=== PATIENT | male | born 1950 | race Caucasian/White ===

== ENCOUNTER 2023-09-07 09:35 | Outpatient (OUT) | payer MEDICARE, OTHER, SELFPAY ==
[2023-09-07 10:11] LABS: Basophils Percent Auto 0.5 % (0.2-2.0); Eosinophils Absolute Auto 0.4 10^3/uL (0.0-0.7); Eosinophils Percent Auto 6.5 % (0.9-7.0); Immature Granulocytes Abs Auto 0.01 10^3/uL (0.00-0.03); Immature Granulocytes Pct Auto 0.2 % (0.0-0.5); Lymphocytes Absolute Auto 1.9 10^3/uL (1.2-3.8); Lymphocytes Percent Auto 33.7 % (20.5-60.0); Mean Corpuscular HGB Conc 33.3 g/dL (29.9-35.2); Mean Corpuscular Hemoglobin 30.6 pg (25.9-34.0); Mean Corpuscular Volume 91.7 fL (80.0-94.0); Monocytes Absolute Auto 0.5 10^3/uL (0.3-0.8); Monocytes Percent Auto 9.4 % (1.7-12.0); Neutrophils Absolute Auto 2.9 10^3/uL (1.4-6.5); Neutrophils Percent Auto 49.7 % (43.0-75.0); Platelet Count 167 10^3/uL (150-450); Red Blood Count 4.58 10^6/uL (4.70-6.10); Red Cell Distribution Width 12.4 % (11.0-15.0); White Blood Count 5.7 10^3/uL (4.0-11.0)
[2023-09-07 12:35] LABS: Alanine Aminotransferase 28 U/L (16-63); Albumin Level 3.4 g/dL (3.4-5.0); Alkaline Phosphatase 79 U/L (46-116); Anion Gap 12.9; Aspartate Amino Transferase 21 U/L (15-37); BUN Creatinine Ratio 9.8; Bilirubin Total 1.7 mg/dL (0.2-1.0); Calcium 8.2 mg/dL (8.5-10.1); Carbon Dioxide 27.3 mmol/L (21.0-32.0); Chloride 108 mmol/L (98-107); Chol HDL Ratio 3.5; Cholesterol 104 mg/dL (<=200); Estimated GFR (African America 59 (>=60); Estimated GFR (Non-African Ame 48 (>=60); Globulin 3.3 g/dL; Glucose 107 mg/dL (74-106); HDL Cholesterol 30 mg/dL (40-60); Potassium 4.2 mmol/L (3.5-5.1); Sodium 144 mmol/L (136-145); Total Protein 6.7 g/dL (6.4-8.2); Triglycerides 162 mg/dL (<=150); VLDL CHOLESTEROL 32.4 mg/dL
== END 2023-09-07 09:36 | disposition home or self-care (01) ==
LOC: LAB 09:40
PROVIDERS: PCP Family Medicine; Visit Provider Internal Medicine Interventional Cardiology
DX: I25.10 Atherosclerotic heart disease of native coronary artery without angina pectoris (principal); E78.2 Mixed hyperlipidemia; I10 Essential (primary) hypertension
CPT/HCPCS: 36415; 80053; 80061; 85025

== ENCOUNTER 2024-09-20 13:30 | Outpatient (OUT) | payer MEDICARE, OTHER, SELFPAY ==
--- NOTE | 2024-09-20 14:00 | CA_ITS ---
Patient Name: LUIS ALBERTO COHEN MR#: [id number] : 1950 Exam Date: 09/20/2024 Ordering Doctor: DR SUSHMA ROWLEY M.D. ECHOCARDIOGRAM REPORT PROCEDURE: CA ECHO DOPPLER COMPLETE INDICATIONS: Coronary artery disease, OR, hypertension COMPARISON: None. DESCRIPTION: COMPLETE ECHOCARDIOGRAM Real-time transthoracic echocardiography with 2D, M-mode, spectral and color flow Doppler performed. QUALITY: Technical quality was good. LEFT VENTRICLE: Normal chamber size. Proximal septal hypertrophy (sigmoid septum). Normal systolic function. LV EF: Normal left ventricular ejection fraction, (55-60%). DIASTOLIC: Normal diastolic function. ATRIAL SEPTUM: Visually appears intact. LEFT ATRIUM: Normal chamber size. RIGHT ATRIUM: Normal chamber size. RIGHT VENTRICLE: Normal chamber size. Normal right ventricular systolic function. TRICUSPID VALVE: Normal mobility and thickness. No stenosis with trivial regurgitation. Unable to assess right-sided pressures due to lack of measurable tricuspid regurgitation. MITRAL VALVE: Normal mobility and thickness. No evidence of mitral valve stenosis. There is no mitral annular calcification. Mild mitral regurgitation. AORTIC VALVE: Normal trileaflet appearance. No visible sclerosis. Normal leaflet mobility. No evidence of aortic valve stenosis. No aortic regurgitation. AORTIC ROOT: Normal diameter and appearance. Ascending aorta is normal in size. PULMONIC VALVE: Normal thickness and mobility. No stenosis. Trivial regurgitation. PERICARDIUM: No evidence of pericardial effusion. IVC: Collapses with inspirations. PLEURA: CONCLUSION: 1. Follow-up ventricular size and systolic function. LVEF is estimated at 55 to 60%. 2. Normal right ventricular size and systolic function. 3. Normal diastolic function. 4. Mild mitral regurgitation. 5. Unable to assess right-sided pressures due to lack of measurable tricuspid regurgitation. Adult Echocardiography Procedure Report Left Ventricle LVEDD (3.7 - 5.6 cm): 4.59 cm LVESD (2.2 - 4.0 cm): 2.91 cm LVIVS thickness (0.6 - 1.2 cm): 1.08 cm LVPW thickness (0.5 - 1.0 cm): 1.01 cm e': 0.11 m/s E - e': 10.15 LVOT Max Gradient: 5.91 mm[Hg] LVOT Area (cm2): 1.22 m/s Peak Velocity (LVOT): 1.22 m/s Mean Velocity (LVOT): 0.80 m/s LVOT Diameter 2.10 cm Left Atrium LA Volume Index (2D A2C): 35.89 ml/m2 Left Atrium Systolic Dimension: 3.20 cm Mitral Valve MV E to A Ratio: 1.23 Mitral Valve A-Wave Peak Velocity: 0.91 m/s Mitral Valve E-Wave Peak Velocity: 1.12 m/s Right Ventricle Aorta AO Root Diam: 3.55 cm Ascending Ao Diam: 2.70 cm Aortic Valve AoV Area (Peak Neel): 2.70 cm2, 2.70 cm2 AoV Area (VTI): 2.77 cm2, 2.77 cm2 Peak Velocity(Antegrade Flow): 1.55 m/s Peak Gradient(Antegrade Flow): 9.64 mm[Hg] Mean Velocity(Antegrade Flow): 0.90 m/s Mean Gradient(Antegrade Flow): 4.00 mm[Hg] Velocity Time Integral: 33.56 cm Tricuspid Valve Pulmonic Valve Mean Gradient: 4.87 mm[Hg] Mean Velocity: 1.02 m/s Peak Velocity: 1.55 m/s, 1.51 m/s Peak Gradient: 9.18 mm[Hg], 9.58 mm[Hg] Right Atrium Right Atrium Systolic Pressure: 32.77 ml, 32.77 ml Dictated by: Sushma Rowley M.D. on 09/20/2024 at 15:16 Approved by: Sushma Rowley M.D. on 09/20/2024 at 15:19
== END 2024-09-20 13:31 | disposition home or self-care (01) ==
LOC: CARD 13:30
PROVIDERS: PCP Family Medicine; Visit Provider Internal Medicine Interventional Cardiology
DX: I25.10 Atherosclerotic heart disease of native coronary artery without angina pectoris (principal)
CPT/HCPCS: 93306

== ENCOUNTER 2025-01-23 09:45 | Outpatient (OUT) | payer MEDICARE, OTHER, SELFPAY ==
--- OUTSIDE RECORDS SUMMARY | 2025-01-23 10:04 | XMS_ITS | CCD ---
Author Organization [facility] Care Team Providers Care Qm Nurse Name Role Phone UNKNOWN, PROVIDER Admitting Unavailable UNKNOWN, PROVIDER Attending Unavailable DEXTER PERSAUD Referring Unavailable PERSAUD, DEXTER Primary Care Unavailable PERSAUD, DR DEXTER Pitts Admitting Unavailable PERSAUD, DR DEXTER Pitts Attending Unavailable PERSAUD, DR DEXTER Pitts Primary Care Unavailable PERSAUD, DR DEXTER Pitts Consulting Unavailable MOUKARBSUSHMA GARIBAY Attending Unavailable Allergies Allergy Classification Reported Allergen(s) Allergy Type Date of Onset Reaction(s) Facility (3 sources) black walnut pollen extract; Translations: [[id number] REDUCTASE INHIBITORS] Drug Allergy 07-09-2014 [facility] Repository Problems Problem Classification Problem Date Documented Date Episodic/Chronic Coronary atherosclerosis and other heart disease (3 sources) Atherosclerotic heart disease of [place] coronary artery without angina pectoris; Translations: [ASHD [place] CA W/O ANGINA PECTORIS] Onset: 09-09-2022 Chronic Disorders of lipid metabolism (2 sources) Mixed hyperlipidemia; Translations: [Mixed hyperlipidemia] Onset: 09-11-2024 Chronic Essential hypertension (2 sources) Essential (primary) hypertension; Translations: [Essential (primary) hypertension] Onset: 09-11-2024 Chronic Heart valve disorders (2 sources) Nonrheumatic mitral (valve) insufficiency; Translations: [Nonrheumatic mitral (valve) insufficiency] Onset: 09-11-2024 Chronic Hypertension with complications and secondary hypertension (4 sources) Hypertensive chronic kidney disease with stage 1 through stage 4 chronic kidney disease, or unspecified chronic kidney disease; Translations: [HTN CKD W/STAGE 1-4 CKD/UNS CKD] Onset: 09-07-2022 Chronic Other screening for suspected conditions (not mental disorders or infectious disease) (1 source) Encounter for screening for malignant neoplasm of prostate; Translations: [ENC SCREEN MALIG NEOPLASM PROSTATE] Onset: 09-09-2022 Episodic Unclassified (1 source) CHRN KIDNEY DISEASE STG 3 UNSP; Translations: [CHRN KIDNEY DISEASE STG 3 UNSP] Onset: 09-09-2022 Results Test Name Value Interpretation Reference Range Facility Office Visiton 09-11-2024 Follow-up visit [id number] Luis Alberto Chambers 1950 M Date Provider Department Center 09/11/2024 SUSHMA ZARCO [facility] Family History Problem Relation Age of Onset Colon cancer Mother Lung cancer Father Family Status - Relation Status Age at Mother Father Level of Service:62122 NE OFFICE/OUTPATIENT ESTABLISHED MOD MDM 30 MIN [facility] 36on 12-03-2023 36 I don't think the carvedilol is helping. He can switch back to the metoprolol succinate if he would like since this was just once daily, I know he said he has a hard time with twice daily medications. Recommend we add an additional medication, amlodipine 5mg daily. Follow-up on BP readings in 1 month. Thanks! [facility] 36on 11-12-2023 36 Still above goal of <130/90. Can we try to increase his carvedilol to 6.25mg twice daily? If his HR gets lower than his normal or he develops any sx's of dizziness/lightheaded ness, fatigue he should go back to the 3.125mg dose. Follow-up blood pressure and heart rates in 2 weeks. Thanks! [facility] 36on 10-19-2023 36 I spoke to patient. He has been taking metoprolol and carvedilol together. He has been more vigilant with his evening dose of carvedilol. He would like to see how he does with this and then discuss changing things. Please call him in 2-3 weeks. Thank you! [facility] CBC AUTO DIFFon 09-07-2022 BASO # 0.0 103/ul Normal 0.0-0.1 [facility] Comment on above: Performed By: #### C BC #### [facility] [address] [address] [address] Jamal Uriarte Basophils/100 WBC (Bld) 0.4 % Normal 0.2-2.0 [facility] Comment on above: Performed By: #### C BC #### [facility] [address] [place] [address] Dr. Jamal Uriarte EO # 0.3 103/ul Normal 0.0-0.7 [facility] Comment on above: Performed By: #### C BC #### [facility] [address] [place] [address] Dr. Jamal Uriarte Eosinophils/100 WBC (Bld) 6.2 % Normal 0.9-7.0 [facility] Comment on above: Performed By: #### C BC #### [facility] [address] [place] [address] Dr. Jamal Uriarte Erythrocyte distribution width (RBC) [Ratio] 12.8 % Normal 11.0-15.0 [facility] Comment on above: Performed By: #### C BC #### [facility] [address] [place] [address] Dr. Jamal Uriarte Hematocrit (Bld) [Volume fraction] 42.8 % Normal 42.0-54.0 [facility] Comment on above: Performed By: #### C BC #### [facility] [address] [place] [address] Dr. Jamal Uriarte Hemoglobin (Bld) [Mass/Vol] 14.6 g/dL Normal 14.0-18.0 [facility] Comment on above: Performed By: #### C BC #### [facility] [address] [place] [address] Dr. Jamal Uriarte IG # 0.02 10e3/ul Normal 0.00-0.03 [facility] Comment on above: Performed By: #### C BC #### [facility] [address] [place] [address] Dr. Jamal Uriarte IG % 0.4 % Normal 0.0-0.5 [facility] Comment on above: Performed By: #### C BC #### [facility] [address] [place] [address] Dr. Jamal Uriarte LYMPH # 1.8 103/ul Normal 1.2-3.8 [facility] Comment on above: Performed By: #### C BC #### [facility] [address] [place] [address] Dr. Jamal Uriarte Lymphocytes/100 WBC (Bld) 34.0 % Normal 20.5-60.0 [facility] Comment on above: Performed By: #### C BC #### [facility] [address] [place] [address] Dr. Jamal Uriarte MANUAL DIFF REQ NO Normal [facility] Comment on above: Performed By: #### C BC #### [facility] [address] [place] [address] Dr. Jamal Uriarte MCH (RBC) [Entitic mass] 29.7 pg Normal 25.9-34.0 [facility] Comment on above: Performed By: #### C BC #### [facility] [address] [place] [address] Dr. Jamal Uriarte MCHC (RBC) [Mass/Vol] 34.1 g/dL Normal 29.9-35.2 [facility] Comment on above: Performed By: #### C BC #### [facility] [address] [place] [address] Dr. Jamal Uriarte MCV (RBC) [Entitic vol] 87.0 fL Normal 80.0-94.0 [facility] Comment on above: Performed By: #### C BC #### [facility] [address] [place] [address] Dr. Jamal Uriarte MONO # 0.5 103/ul Normal 0.3-0.8 [facility] Comment on above: Performed By: #### C BC #### [facility] [address] [place] [address] Dr. Jamal Uriarte Monocytes/100 WBC (Bld) 9.2 % Normal 1.7-12.0 [facility] Comment on above: Performed By: #### C BC #### [facility] [address] [place] [address] Dr. Jamal Uriarte NEUT # 2.6 103/ul Normal 1.4-6.5 [facility] Comment on above: Performed By: #### C BC #### [facility] [address] [address] [address] Jamal Uriarte Neutrophils/100 WBC (Bld) 49.8 % Normal 43.0-75.0 [facility] Comment on above: Performed By: #### C BC #### [facility] [address] [address] [address] Jamal Uriarte Platelet mean volume (Bld) [Entitic vol] 9.4 fL Critically low 9.5-13.5 [facility] Comment on above: Performed By: #### C BC #### [facility] [address] [place] [address] Dr. Jamal Uriarte PLT 181 103/ul Normal 150-450 [facility] Comment on above: Performed By: #### C BC #### [facility] [address] [place] [address] Dr. Jamal Uirarte RBC 4.92 106/ul Normal 4.70-6.10 [facility] Comment on above: Performed By: #### C BC #### [facility] [address] [place] [address] Dr. Jamal Uriarte WBC 5.3 103/ul Normal 4.0-11.0 [facility] Comment on above: Performed By: #### C BC #### [facility] [address] [place] [address] Dr. Jamal Uriarte LIPID PROFILEon 09-07-2022 CHOL-HDL RATIO NORM SEE BELOW Normal [facility] Comment on above: Result Comment: 3.3 - 4.4 LOW RISK 4.4 - 7.1 AVERAGE RISK 7.1 - 11.0 MODERATE RISK >11.0 HIGH RISK Performed By: #### C MP, LIPID #### [facility] [address] [place] [address] Dr. Jamal Uriarte Cholesterol [Mass/Vol] 150 mg/dL Normal <=200 [facility] Comment on above: Performed By: #### C MP, LIPID #### [facility] [address] [place] [address] Dr. Jamal Uriarte Cholesterol in HDL [Mass/Vol] 36 mg/dL Critically low 40-60 [facility] Comment on above: Performed By: #### C MP, LIPID #### [facility] [address] [address] [address] Jamal Uriarte Cholesterol in LDL [Mass/Vol] 71.0 mg/dL Normal [facility] Comment on above: Performed By: #### C MP, LIPID #### [facility] [address] [address] [address] Jamal Uriarte Cholesterol.total/C holesterol in HDL [Mass ratio] 4.2 {ratio} Normal [facility] Comment on above: Performed By: #### C MP, LIPID #### [facility] [address] [address] [address] Jamal Uriarte HDL NORMAL > or = 60 mg/dl - LO W CARDIOVASCULAR RISK <40 mg/dl - HIGH CARDIOVASCULAR RISK Normal [facility] Comment on above: Performed By: #### C MP, LIPID #### [facility] [address] [address] [address] Jamal Uriarte LDL CALC NORMAL SEE BELOW Normal [facility] Comment on above: Result Comment: <100 mg/dl OPTIMAL 100 - 129 mg/dl NEAR OR ABOVE OPTIMAL 130 - 159 mg/dl BORDERLINE HIGH 160 - 189 mg/dl HIGH >190 mg/dl VERY HIGH Performed By: #### C MP, LIPID #### [facility] [address] [address] [address] Jamal Uriarte Triglyceride [Mass/Vol] 215 mg/dL Critically high <=150 [facility] Comment on above: Performed By: #### C MP, LIPID #### [facility] [address] [address] [address] Jamal Uriarte VLDL CALC 43.0 mg/dL Normal [facility] Comment on above: Performed By: #### C MP, LIPID #### [facility] [address] [address] [address] Jamal Uriarte PROF 14(COMP METB)on 022 Albumin [Mass/Vol] 3.7 g/dL Normal 3.4-5.0 [facility] Comment on above: Performed By: #### C MP, LIPID #### [facility] [address] [address] [address] Jamal Uriarte Albumin/Globulin [Mass ratio] 1.0 {ratio} Normal [facility] Comment on above: Performed By: #### C MP, LIPID #### [facility] [address] [address] [address] Jamal Uriarte ALP [Catalytic activity/Vol] 74 U/L Normal 46-116 [facility] Comment on above: Performed By: #### C MP, LIPID #### [facility] [address] [address] [address] Jamal Uriarte ALT [Catalytic activity/Vol] 40 U/L Normal 16-63 [facility] Comment on above: Performed By: #### C MP, LIPID #### [facility] [address] [place] [address] Dr. Jamal Uriarte Anion gap [Moles/Vol] 10.7 mmol/L Normal [facility] Comment on above: Performed By: #### C MP, LIPID #### [facility] [address] [address] [address] Jamal Uriarte AST [Catalytic activity/Vol] 28 U/L Normal 15-37 [facility] Comment on above: Performed By: #### C MP, LIPID #### [facility] [address] [address] [address] Jamal Uriarte Bilirubin [Mass/Vol] 1.6 mg/dL Critically high 0.2-1.0 [facility] Comment on above: Performed By: #### C MP, LIPID #### [facility] [address] [address] [address] Jamal Uriarte Calcium [Mass/Vol] 8.7 mg/dL Normal 8.5-10.1 [facility] Comment on above: Performed By: #### C MP, LIPID #### [facility] [address] [address] [address] Jamal Uriarte Chloride [Moles/Vol] 107 mmol/L Normal 98-107 [facility] Comment on above: Performed By: #### C MP, LIPID #### [facility] [address] [address] [address] Jamal Uriarte CO2 [Moles/Vol] 26.3 mmol/L Normal 21.0-32.0 [facility] Comment on above: Performed By: #### C MP, LIPID #### [facility] [address] [address] [address] Jamal Uriarte Creatinine [Mass/Vol] 1.42 mg/dL Critically high 0.70-1.30 [facility] Comment on above: Performed By: #### C MP, LIPID #### [facility] [address] [address] [address] Jamal Uriarte EGFR-AF SENEGALESE 59 mL/min/1.73m2 Critically low >=60 [facility] Comment on above: Performed By: #### C MP, LIPID #### [facility] [address] [address] [address] Jamal Uriarte EGFR-NON AF SENEGALESE 49 mL/min/1.73m2 Critically low >=60 [facility] Comment on above: Performed By: #### C MP, LIPID #### [facility] [address] [address] [address] Jamal Uriarte Globulin (S) [Mass/Vol] 3.7 g/dL Normal [facility] Comment on above: Performed By: #### C MP, LIPID #### [facility] [address] [address] [address] Jamal Uriarte Glucose [Mass/Vol] 114 mg/dL Critically high 74-106 [facility] Comment on above: Performed By: #### C MP, LIPID #### [facility] [address] [address] [address] Jamal Uriarte Potassium [Moles/Vol] 4.0 mmol/L Normal 3.5-5.1 [facility] Comment on above: Performed By: #### C MP, LIPID #### [facility] [address] [address] [address] Jamal Uriarte Protein [Mass/Vol] 7.4 g/dL Normal 6.4-8.2 [facility] Comment on above: Performed By: #### C MP, LIPID #### [facility] [address] [address] [address] Jamal Uriarte Sodium [Moles/Vol] 140 mmol/L Normal 136-145 [facility] Comment on above: Performed By: #### C MP, LIPID #### [facility] [address] [address] [address] Jamal Uriarte Urea nitrogen [Mass/Vol] 19.0 mg/dL Critically high 7.0-18.0 [facility] Comment on above: Performed By: #### C MP, LIPID #### [facility] [address] [address] [address] Jamal Uriarte Urea nitrogen/Creatinine [Mass ratio] 13.4 mg/mg Normal [facility] Comment on above: Performed By: #### C MP, LIPID #### [facility] [address] [address] [address] Jamal Uriarte Provider Letteron 07-14-2021 Provider Letter July 14, 2021 July 14, 2021 LUIS ALBERTO CHAMBERS [address] [place] [address] LUIS ALBERTO CHAMBERS 1950 Dear Luis Alberto , You missed your scheduled appointment on: June and the purpose of this letter is to inform you of our *No Show Policy*. Our appointment slots fill rapidly and when we have a no show appointment that time is lost. We could have used that time slot to care for a patient who needed to see one of our providers. Therefore, we ask that you call 24 hours in advance to cancel your appointment. This policy is in place so that we can meet the needs of all of our patients and we do appreciate your understanding. Sincerely, [facility] [address], [address] [place] [id number] Normal [facility] RAD - CT Reporton 12-25-2020 RAD - CT Report [id number]:127 Normal [facility] RAD - MISCon 12-25-2020 RAD - MISC [id number] .[id number]:127 Normal [facility] Formson 12-24-2020 Forms [id number]:127 Normal [facility] Screenson 12-24-2020 Screens [id number] .[id number]:127 Normal [facility] Ambulatory Clinical Summaryo n 12-23-2020 Ambulatory Clinical Summary {[id number]}CD:[id number] Normal [facility] Patient Educationon 12-24-19 Patient Education Urology Kidney Stones Kidney stones are rock-like masses that form inside of the kidneys. Kidneys are organs that make pee (urine). A kidney stone may move into other parts of the urinary tract, including: ? The tubes that connect the kidneys to the bladder (ureters). ? The bladder. ? The tube that carries urine out of the body (urethra). Kidney stones can cause very bad pain and can block the flow of pee. The stone usually leaves your body (passes) through your pee. You may need to have a doctor take out the stone. What are the causes? Kidney stones may be caused by: ? A condition in which certain glands make too much parathyroid hormone (primary hyperparathyroidism). ? A buildup of a type of crystals in the bladder made of a chemical called uric acid. The body makes uric acid when you eat certain foods. ? Narrowing (stricture) of one or both of the ureters. ? A kidney blockage that you were born with. ? Past surgery on the kidney or the ureters, such as gastric bypass surgery. What increases the risk? You are more likely to develop this condition if: ? You have had a kidney stone in the past. ? You have a family history of kidney stones. ? You do not drink enough water. ? You eat a diet that is high in protein, salt (sodium), or sugar. ? You are overweight or very overweight (obese). What are the signs or symptoms? Symptoms of a kidney stone may include: ? Pain in the side of the belly, right below the ribs (flank pain). Pain usually spreads (radiates) to the groin. ? Needing to pee often or right away (urgently). ? Pain when going pee (urinating). ? Blood in your pee (hematuria). ? Feeling like you may vomit (nauseous). ? Vomiting. ? Fever and chills. How is this treated? Treatment depends on the size, location, and makeup of the kidney stones. The stones will often pass out of the body through peeing. You may need to: ? Drink more fluid to help pass the stone. In some cases, you may be given fluids through an IV tube put into one of your veins at the hospital. ? Take medicine for pain. ? Make changes in your diet to help keep kidney stones from coming back. Sometimes, medical procedures are needed to remove a kidney stone. This may involve: ? A procedure to break up kidney stones using a beam of light (laser) or shock waves. ? Surgery to remove the kidney stones. Follow these instructions at home: Medicines ? Take kfoz-cyr-xkiajje and prescription medicines only as told by your doctor. ? Ask your doctor if the medicine prescribed to you requires you to avoid driving or using heavy machinery. Eating and drinking ? Drink enough fluid to keep your pee pale yellow. You may be told to drink at least 8?10 glasses of water each day. This will help you pass the stone. ? If told by your doctor, change your diet. This may include: ? Limiting how much salt you eat. ? Eating more fruits and vegetables. ? Limiting how much meat, poultry, fish, and eggs you eat. ? Follow instructions from your doctor about eating or drinking restrictions. General instructions ? Collect pee samples as told by your doctor. You may need to collect a pee sample: ? 24 hours after a stone comes out. ? 8?12 weeks after a stone comes out, and every 6?12 months after that. ? Strain your pee every time you pee (urinate), for as long as told. Use the strainer that your doctor recommends. ? Do not throw out the stone. Keep it so that it can be tested by your doctor. ? Keep all follow-up visits as told by your doctor. This is important. You may need follow-up tests. How is this prevented? To prevent another kidney stone: ? Drink enough fluid to keep your pee pale yellow. This is the best way to prevent kidney stones. ? Eat healthy foods. ? Avoid certain foods as told by your doctor. You may be told to eat less protein. ? Stay at a healthy weight. Where to find more information ? National Kidney Foundation (NKF): www.kidney.org ? [employer] (UCF): www.urologyhealth.org Contact a doctor if: ? You have pain that gets worse or does not get better with medicine. Get help right away if: ? You have a fever or chills. ? You get very bad pain. ? You get new pain in your belly (abdomen). ? You pass out (faint). ? You cannot pee. Summary ? Kidney stones are rock-like masses that form inside of the kidneys. ? Kidney stones can cause very bad pain and can block the flow of pee. ? The stones will often pass out of the body through peeing. ? Drink enough fluid to keep your pee pale yellow. This information is not intended to replace advice given to you by your health care provider. Make sure you discuss any questions you have with your health care provider. Document Released: 03/22/2009 Document Revised: 02/20/2020 Document Reviewed: 02/20/2020 [employer] Patient Education ? 2019 [employer] 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 Persaud due to Kidney stone found on CT done 11/19/20. Pt was in the ER 11/19/20 due to left flank pain that radiated around the front. Pt states that he passed a stone 3 days after the ER visit. KUB 12/19/20 is negative for stones. This is the pt's first issue with stones. Dysuria: no pain or burning Incomplete bladder emptying: emptying Hematuria: _denies any blood in urine Frequency: normal Urgency: none Nocturia: 1x Stream: average stream, no hesitation, no straining to empty. no intermittent Post void dripping: rare Wearing pads/ Depends: _ Urge incontinence: none Stress incontinence: none Incontinence without Sensory Awareness: none Abdominal pain: no pain at this time Flank pain: no pain Sexual complaints: none expressed History of Present Illness Reviewed KUB, CT, [facility] ER notes, and new pt. paper works. There have been no associated fever, chills, flank pain or blood in the urine. Pt. denies any pain/burning with urination at this time. Review of Systems PHQ Score Initial Depression Screen Score: 0 ROS - Provider Constitutional: denies weight loss, denies hot flashes. Eyes: denies eye problems. Gastrointestinal: denies nausea, denies vomiting. Cardiovascular: denies chest pain or angina. Integumentary: no dryness Musculoskeletal: denies musculoskeletal symptoms. ENMT: denies otolaryngeal symptoms. Respiratory: no shortness of breath. Heme/Lymph: denies easy bleeding tendency, denies easy bruising tendency. Psychiatric: no confusion, no anxiety. Genitourinary: denies dysuria, denies hematuria, denies discharge, denies urinary frequency, denies urinary hesitancy, denies nocturia, denies incontinence, denies genital sores, denies decreased libido, and denies erectile dysfunction. Physical Exam Vitals & Measurements HR: 65(Peripheral) RR: 18 BP: 157/94 HT: 168 cm HT: 168.0 cm WT: 100 kg WT: 100.0 kg BMI: 35.43 General Appearance: alert, no distress, well nourished, well developed male. Head: normocephalic . Eyes: normal orbit and globe. ENMT: normal examination of external ears. Chest: Lungs CTA, respirations non labored. Cardiovascular: regular rate and rhythm. Abdomen: soft, non distended, no tenderness, no mass or organomegaly, no hernia. Genitourinary: normal scrotum, normal testes, normal urethra, normal epididymis, normal vas deferens/spermatic cord. Flank Pain: none. Bladder: nonpalpable. Penis: normal shaft, normal glans. Prostate: normal prostate, estimated weight 30 gms, no hard nodule observed. Lymph Nodes: unremarkable palpation of the cervical area. Skin: warm, dry, no bruising. Psychiatric: cooperative, affect appropriate for age, normal judgement, euthymic mood. Assessment/Plan 1. Ureteral stone (N20.1: Calculus of ureter) Per CT 11/19/20, 4mm left ureteral stone. Current KUB done 12/19/2020 no longer identifies the ureterolith. Pt. never passed the stone but his pain stopped 3 days after the e.r.. From today's exam, pts. previous left flank pain is no longer present. Will continue to monitor. All questions/concerns were discussed. Pt. to call the office if heencounters any issues prior. Pt. acknowledges understanding. 2. Kidney stone (N20.0: Calculus of kidney) Per CT done 11/19/20, 3mm rt. renal stone. Current KUB is neg. for stones. 3. BPH with urinary obstruction (N40.1: Benign prostatic hyperplasia with lower urinary tract symptoms) Pt. is not on any BPH meds. at this time and is doing well overall w/ his urination w/ no bothersome symptoms. JOSÉ today - 30gms, no hard nodules. I have reviewed the previous health record information and history for this pt. from Dr. Campuzano. Follow-up With When Contact Information TATIANNA LEY, Francisco Cage [facility] [place] [address] [place] [address]- [phone] Additional Instructions: 6mos. kub Patient Education Kidney Stones, Qbli-[id number] I, Nerissa Merida , personally scribed for Dr. Campuzano on 12/23/2020 11:10:07. . Documentation recorded by the scribe, Nerissa Merida, accurately reflects the services(s) I performed and decisions made by me. Authenticated by Dr. Campuzano on 12/23/2020 11:12:44. Problem List/Past Medical History Ongoing CAD (coronary artery disease) Chronic gastroesophageal reflux disease CKD (chronic kidney disease), stage III Generalized anxiety disorder High cholesterol Hypertension Kidney stone VT (myocardial infarction) Historical No qualifying data Procedure/Surgical History Cardiac catheterization, History of tonsillectomy, History of vasectomy. Medications aspirin 325 mg Oral EC Tab, Oral, Daily atorvastatin 80 mg Tab, Oral, Daily metoprolol 25 mg ER Tab, Oral, Daily olmesartan 40 mg Tab, Oral, Daily Allergies statins (Unknown) Social History Tobacco Former smoker, quit more than 30 days ago Tobacco Use:., 12/23/2020 Fami (more content not included)... Normal [facility] Comment on above: Result Comment: Elec tronically Signed By: Francisco CAMPUZANO MD\.br\Date and Time Signed: 12/23/20 11:12 EST\.br\Electronically Co-Signed By: Nerissa Merida MA\.br\Date and Time Co-Signed: 12/23/20 11:10 EST RAD - MISCon 12-20-2020 RAD - MISC [id number] Normal [facility] Cardiovascular Lab Reporton 07-12-2020 Cardiovascular Lab Report [facility] Patient Name: Trish, [facility] Bernardo MR #: [id number] Department of Physician: Sushma Rowley M.D. Division of Service Date: 07/11/2020 Cardiology Birthdate: 1950 Adult Cardiovascular Room #: [place] [address] Cardiovascular Laboratory Report INDICATION: The patient is a 69-year-old man with prior history of coronary artery disease status post stenting of the LAD in the past. He was evaluated recently in Cardiology Clinic because of chest pain and an abnormal stress test and he was referred for cardiac catheterization. PROCEDURE: Bilateral selective coronary angiography from the left radial access. METHODS: Procedure was explained to the patient with risks and benefits. He signed informed consent. 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 Due to his chronic kidney disease, he was hydrated prior to the procedure. Modified Trell's test was favorable on the left. Access in the left radial artery was obtained using micropuncture technique. A 6-Stateless x 11 cm Hydrophilic sheath was advanced. Verapamil was given through the sheath and heparin was administered intravenously. Bilateral selective coronary angiography was then performed using a 6-Stateless JL3.5 for engagement of the left anterior descending artery, a 6-Stateless multipurpose catheter for engagement of the circumflex vessel and a 4-Stateless 3DRC diagnostic catheter for engagement of the right coronary artery. Catheters were removed. Procedure was concluded. A TR band was used for hemostasis in the left radial artery. He tolerated the procedure well. He will be observed for 4 hours and then discharged to home. TOTAL FLUORO TIME: 9.04 minutes. TOTAL AIR KERMA: 780 mGy. TOTAL CONTRAST VOLUME: 35 mL. HEMODYNAMICS: AO 139/78, mean 102. CORONARY ANGIOGRAPHY: 1. This is a left dominant circulation. 2. Left main: This is an existent. The LAD and circumflex vessels arise from separate ostia. 3. Left anterior descending: This is a large vessel. It arises from left coronary cusp. It has a previously placed stent in the mid segment. The stent is widely patent. The rest of the LAD has mild disease. 4. 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 It is a large and dominant vessel. It has minimal luminal irregularities. 5. Right coronary artery: This arises from the right coronary cusp. It is a small and nondominant vessel. It is free of disease. SUMMARY OF THE FINDINGS: 1. Patent previously placed mid LAD stent with mild disease in LAD. 2. 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 The circumflex vessel has minimal disease. Small nondominant right coronary artery is free of disease. RECOMMENDATIONS: Medical therapy and follow up in Cardiology Clinic. Electronically Signed by: Sushma Rowley M.D. 07/15/2020 10:37 P Sushma Rowley M.D. Date Dict: 07/11/2020/02:35 P/Sushma Rowley M.D. Date Trans: 07/12/2020 01:44 Gisselle/jodie [id number] cc: Dexter Persaud D.O. [id number] [facility] [id number] Normal [facility] Encounters Encounter Date Encounter Type Care Provider Facility Start: 09-11-2024 End: 09-11-2024 ambulatory SUSHMA ROWLEY [facility] Start: 09-07-2022 End: 09-08-[address] DEXTER PERSAUD Facility: Start: 07-11-2020 End: 07-12-2020 Patient encounter procedure PROVIDER UNKNOWN Facility:[facility] Procedures Date Procedure Procedure Detail Performing Clinician Start: 09-07-[address] DEXTER PERSAUD Comment on above: Performed By: #### P [facility] #### [facility] [address] [address] [address] Jamal Uriarte Payers Date Payer Category Payer Medicare [id number] 1960 Unknown [id number] 1950 Unknown [id number] 1950 Unknown [id number] Progress note 09-11-2024 Note Date & Type Note Facility 09-11-2024 Note [facility] Subjective Luis Alberto Chambers is a 74 y.o. year old male patient being seen for 1 year follow up CAD, hypertension, hyperlipidemia, and bradycardia. No labs/imaging since last year. He has started lifting weights again and is able to do so without symptoms. He believes he has an upcoming apt with his PCP, who will order routine labs per patient. Doing very well. Patient Active Problem List Diagnosis Bradycardia Closed fracture of distal phalanx of finger Coronary arteriosclerosis Hypertensive disorder Open fracture of bone Family History Problem Relation Name Age of Onset Colon cancer Mother Lung cancer Father Social History Tobacco Use Smoking status: Former Types: Cigarettes Smokeless tobacco: Never Substance Use Topics Alcohol use: Not Currently Drug use: Never HPI Mr Chambers is seen in follow up. He is a 74 yo man with history of coronary artery disease and history of VT s/p stenting of the LAD in March of 2015. He had a NSTEMI in March 21, 2015. He underwent drug eluting stent to the proximal LAD. 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 Cardiac cath in 2019 showed patent stent and no new lesions. He has hypertension and hyperlipidemia on therapy. He has been doing well. he denies chest pain, shortness of breath, palpitations, dizziness, syncope and leg edemia. he has good exercise tolerance. There is no claudication. Review of Systems Musculoskeletal: Positive for joint pain. All other systems reviewed and are negative. Objective Visit Vitals BP 142/80 (BP Location: Left arm, Patient Position: Sitting) Pulse 58 Ht 1.702 m (5' 7 ) Wt 85.7 kg (189 lb) SpO2 98% BMI 29.60 kg/m??? Smoking Status Former BSA 2.01 m??? Physical Exam Constitutional: Appearance: He is well-developed. He is not ill-appearing. HENT: Head: Normocephalic and atraumatic. Nose: Nose normal. Eyes: General: No scleral icterus. Pupils: Pupils are equal, round, and reactive to light. Neck: Thyroid: No thyromegaly. Vascular: No JVD. Cardiovascular: Rate and Rhythm: Normal rate and regular rhythm. Pulses: Radial pulses are 2+ on the right side and 2+ on the left side. Heart sounds: Normal heart sounds. No murmur heard. No friction rub. No gallop. Pulmonary: Effort: Pulmonary effort is normal. No respiratory distress. Breath sounds: Normal breath sounds. No wheezing or rales. Chest: Chest wall: No tenderness. Abdominal: General: Bowel sounds are normal. There is no distension. Palpations: Abdomen is soft. Tenderness: There is no abdominal tenderness. Musculoskeletal: General: No swelling. Cervical back: Neck supple. Skin: General: Skin is warm and dry. Neurological: General: No focal deficit present. Mental Status: He is alert and oriented to person, place, and time. Psychiatric: Mood and Affect: Mood normal. Behavior: Behavior is cooperative. Judgment: Judgment normal. Allergies Allergies Allergen Reactions Hfvwanu-Rmd-Hdc Reductase Inhibitors Other Medications Current Outpatient Medications: amLODIPine (Norvasc) 5 mg tablet, Take 1 tablet (5 mg) by mouth in the morning., Disp: 90 tablet, Rfl: 3 aspirin 81 mg chewable tablet, Chew 1 tablet every day by oral route., Disp: , Rfl: atorvastatin (Lipitor) 80 mg tablet, Take 1 tablet by mouth in the morning., Disp: , Rfl: metoprolol succinate XL (Toprol-XL) 25 mg 24 hr tablet, Take 1 tablet (25 mg) by mouth in the morning. Do not crush or chew. STOP COREG, Disp: 90 tablet, Rfl: 3 nitroglycerin (Nitrostat) 0.4 mg SL tablet, DISSOLVE ONE TABLET UNDER THE TONGUE EVERY 5 MINUTES NEEDED FOR CHEST PAIN. DO NOT EXCEED A TOTAL OF 3 DOSES IN 15 MINUTES, Disp: , Rfl: olmesartan (BENIcar) 40 mg tablet, Take 1 tablet by mouth in the morning., Disp: , Rfl: amLODIPine (Norvasc) 2.5 mg tablet, Take 1 tablet (2.5 mg) by mouth in the morning. Take in addition to the 5 mg tablet for a total of 7.5 mg daily., Disp: 90 tablet, Rfl: 3 Recent Labs 09/07/2023 CBC unremarkable Cr 1.43, BUN 14, eGFR 48, K 4.2, Na 144, AST 21, ALT 28 Chol 104, HDL 30, LDL 42, trig 162 02/18/2021 Cr 1.53, BUN 21, eGFR 45 Lipid panel 06/25/2020: Cholesterol 107, HDL 26, trig 96, LDL 61 Imaging and other tests CVL 07/15/20 CORONARY ANGIOGRAPHY: 1. This is a left dominant circulation. 2. Left main: This is an existent. The LAD and circumflex vessels arise from separate ostia. 3. Left anterior descending: This is a large vessel. It arises from left coronary cusp. It has a previously placed stent in the mid segment. The stent is widely patent. The rest of the LAD has mild disease. 4. 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 It is a large and dominant vessel. It has minimal luminal irregularities. 5. Right coronary artery: (more content not included)... [facility] Summary Purpose Family History No Family History Records FoundNo Family History Records FoundNo Family History Records FoundNo Family History Records Found Advance Directives No Advanced Directives Records FoundNo Advanced Directives Records FoundNo Advanced Directives Records FoundNo Advanced Directives Records Found Additional Source Comments (unrecognized sect ion and content) No Status Records FoundNo Status Records FoundNo Status Records FoundNo Status Records Found INFORMATION SOURCE (unrecogn ized section and content) DATE CREATED AUTHOR 07/16/2020 [facility] DATE CREATED AUTHOR AUTHOR'S ORGANIZ ATION 07/15/2021 [facility] DATE CREATED AUTHOR AUTHOR'S ORGANIZ ATION 09/10/2022 [facility] DATE CREATED AUTHOR AUTHOR'S ORGANIZ ATION 09/13/2024 [facility] FOR RECORDS PERTAINING TO PATIENTS WHO ARE OR HAVE BEEN ENROLLED IN A CHEMICAL DEPENDENCY/SUBSTANCEABUSE PROGRAM, SOME INFORMATION MAY BE OMITTED. This clinical summary was aggregated from multiple sources. Caution should be exercised in using it in the provision of clinical care. This summary normalizes information from multiple sources, and as a consequence, information in this document may materially change the coding, format and clinical context of patient data. In addition, data may be omitted in some cases. CLINICAL DECISIONS SHOULD BE BASED ON THE PRIMARY CLINICAL RECORDS. [facility] [employer] [facility]. provides no warranty or guarantee of the accuracy or completeness of information in this document.
[2025-01-23 10:16] LABS: Basophils Percent Auto 0.4 % (0.2-2.0); Eosinophils Absolute Auto 0.5 10^3/uL (0.0-0.7); Eosinophils Percent Auto 6.4 % (0.9-7.0); Hematocrit 43.6 % (42.0-54.0); Hemoglobin 14.9 g/dL (14.0-18.0); Immature Granulocytes Abs Auto 0.01 10^3/uL (0.00-0.03); Immature Granulocytes Pct Auto 0.1 % (0.0-0.5); Lymphocytes Absolute Auto 2.1 10^3/uL (1.2-3.8); Lymphocytes Percent Auto 29.4 % (20.5-60.0); Mean Corpuscular HGB Conc 34.2 g/dL (29.9-35.2); Mean Corpuscular Hemoglobin 29.9 pg (25.9-34.0); Mean Corpuscular Volume 87.4 fL (80.0-94.0); Mean Platelet Volume 9.4 fL (9.5-13.5); Monocytes Absolute Auto 0.6 10^3/uL (0.3-0.8); Monocytes Percent Auto 8.6 % (1.7-12.0); Neutrophils Percent Auto 55.1 % (43.0-75.0); Platelet Count 188 10^3/uL (150-450); Red Blood Count 4.99 10^6/uL (4.70-6.10); Red Cell Distribution Width 12.7 % (11.0-15.0); White Blood Count 7.2 10^3/uL (4.0-11.0)
[2025-01-23 11:28] LABS: Alanine Aminotransferase 30 U/L (16-63); Albumin Globulin Ratio 1.1; Albumin Level 3.8 g/dL (3.4-5.0); Alkaline Phosphatase 85 U/L (46-116); Anion Gap 12.4; Aspartate Amino Transferase 24 U/L (15-37); BUN Creatinine Ratio 10.8; Bilirubin Total 2.4 mg/dL (0.2-1.0); Calcium 8.7 mg/dL (8.5-10.1); Carbon Dioxide 26.7 mmol/L (21.0-32.0); Chloride 107 mmol/L (98-107); Chol HDL Ratio 3.3; Cholesterol 120 mg/dL (<=200); Estimated GFR (African America 52 (>=60 mL/min/1.73m^2); Estimated GFR (Non-African Ame 43 (>=60 mL/min/1.73m^2); Globulin 3.5 g/dL; Glucose 100 mg/dL (74-106); HDL Cholesterol 36 mg/dL (40-60); Potassium 4.1 mmol/L (3.5-5.1); Sodium 142 mmol/L (136-145); Total Protein 7.3 g/dL (6.4-8.2); Triglycerides 160 mg/dL (<=150)
== END 2025-01-23 09:46 | disposition home or self-care (01) ==
LOC: LAB 09:52
PROVIDERS: PCP Family Medicine; Visit Provider Internal Medicine Interventional Cardiology
DX: I25.10 Atherosclerotic heart disease of native coronary artery without angina pectoris (principal); I10 Essential (primary) hypertension; E78.2 Mixed hyperlipidemia
CPT/HCPCS: 36415; 80053; 80061; 85025

== ENCOUNTER 2025-03-05 10:42 | Outpatient (OUT) | payer MEDICARE, OTHER, SELFPAY ==
--- OUTSIDE RECORDS SUMMARY | 2025-03-05 11:13 | XMS_ITS | CCD ---
Author Organization [facility] Care Team Providers Care Technical Intern Name Role Phone UNKNOWN, PROVIDER Admitting Unavailable UNKNOWN, PROVIDER Attending Unavailable PERSAUDDEXTER Referring Unavailable PERSAUD, DEXTER Primary Care Unavailable PERSAUD, DR DEXTER Pitts Admitting Unavailable PERSAUD, DR DEXTER Pitts Attending Unavailable PERSAUD, DR DEXTER Pitts Primary Care Unavailable PERSAUD, DR DEXTER Pitts Consulting Unavailable MOUKARBEL, SUSHMA Attending Unavailable MOUKARBEL, SUSHMA Attending Unavailable Allergies Allergy Classification Reported Allergen(s) Allergy Type Date of Onset Reaction(s) Facility (3 sources) black walnut pollen extract; Translations: [[id number] REDUCTASE INHIBITORS] Drug Allergy 07-09-2014 [facility] Repository Problems Problem Classification Problem Date Documented Date Episodic/Chronic Coronary atherosclerosis and other heart disease (3 sources) 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; Translations: [ASHD [place] W/O ANGINA PECTORIS] Onset: 09-09-2022 Chronic Disorders of lipid metabolism (2 sources) Mixed hyperlipidemia; Translations: [Mixed hyperlipidemia] Onset: 01-22-2025 Chronic Essential hypertension (2 sources) Essential (primary) hypertension; Translations: [Essential (primary) hypertension] Onset: 01-22-2025 Chronic Heart valve disorders (2 sources) Nonrheumatic mitral (valve) insufficiency; Translations: [Nonrheumatic mitral (valve) insufficiency] Onset: 01-22-2025 Chronic Hypertension with complications and secondary hypertension [...] Test Name Value Interpretation Reference Range Facility 36on 02-21-2025 36 Regarding lab result s from 01/23/2025: MD Ruthie Esparza MA His blood testing showed everything is good and stable, stable renal function. Follow up in 1 year. Patient informed. Normal [facility] Office Visiton 01-22-2025 Follow-up visit [id number] Alberto Florentino 1950 M Date Provider Department Center 01/22/2025 SUSHMA ZARCO Family History Problem Relation Age of Onset Colon cancer Mother Lung cancer Father Family Status - Relation Status Age at Mother Father Sister Alive Brother Alive Level of Service:39863 MA OFFICE/OUTPATIENT ESTABLISHED MOD MDM 30 MIN [facility] Office Visiton 09-11-2024 Follow-up visit [id number] Luis Alberto Chambers 1950 M Date Provider Department Center 09/11/2024 SUSHMA ZARCO Family History Problem Relation Age of Onset Colon cancer Mother Lung cancer Father Family Status - Relation Status Age at Mother Father Level of Service:86569 MA OFFICE/OUTPATIENT ESTABLISHED MOD MDM 30 MIN [facility] CBC AUTO DIFFon 09-07-2022 BASO # 0.0 103/ul Normal 0.0-0.1 [facility] Comment on above: Performed By: #### C BC #### [facility] [address] [address] [address] Jamal Uriarte Basophils/100 WBC (Bld) 0.4 % Normal 0.2-2.0 [facility] Comment on above: Performed By: #### C BC #### [facility] [address] [place] [address] Dr. Jamal Uriarte EO # 0.3 103/ul Normal 0.0-0.7 [facility] Comment on above: Performed By: #### C BC #### [facility] [address] [place] [address] Dr. Jamal Uriarte Eosinophils/100 WBC (Bld) 6.2 % Normal 0.9-7.0 [facility] Comment on above: Performed By: #### C BC #### [facility] [address] [place] [address] Dr. Jamal Uriarte Erythrocyte distribution width (RBC) [Ratio] 12.8 % Normal 11.0-15.0 [facility] Comment on above: Performed By: #### C BC #### [facility] [address] [place] [address] Dr. Jamal Uriarte Hematocrit (Bld) [Volume fraction] 42.8 % Normal 42.0-54.0 [facility] Comment on above: Performed By: #### C BC #### [facility] [address] [place] [address] Dr. Jamal Uriarte Hemoglobin (Bld) [Mass/Vol] 14.6 g/dL Normal 14.0-18.0 [facility] Comment on above: Performed By: #### C BC #### [facility] [address] [place] [address] Dr. Jamal Uriarte IG # 0.02 10e3/ul Normal 0.00-0.03 [facility] Comment on above: Performed By: #### C BC #### [facility] [address] [place] [address] Dr. Jamal Uriarte IG % 0.4 % Normal 0.0-0.5 [facility] Comment on above: Performed By: #### C BC #### [facility] [address] [place] [address] Dr. Jamal Uriarte LYMPH # 1.8 103/ul Normal 1.2-3.8 [facility] Comment on above: Performed By: #### C BC #### [facility] [address] [place] [address] Dr. Jamal Uriarte Lymphocytes/100 WBC (Bld) 34.0 % Normal 20.5-60.0 [facility] Comment on above: Performed By: #### C BC #### [facility] [address] [place] [address] Dr. Jamal Uriarte MANUAL DIFF REQ NO Normal [facility] Comment on above: Performed By: #### C BC #### [facility] [address] [place] [address] Dr. Jamal Uriarte MCH (RBC) [Entitic mass] 29.7 pg Normal 25.9-34.0 [facility] Comment on above: Performed By: #### C BC #### [facility] [address] [place] [address] Dr. Jamal Uriarte MCHC (RBC) [Mass/Vol] 34.1 g/dL Normal 29.9-35.2 [facility] Comment on above: Performed By: #### C BC #### [facility] [address] [place] [address] Dr. Jamal Uriarte MCV (RBC) [Entitic vol] 87.0 fL Normal 80.0-94.0 [facility] Comment on above: Performed By: #### C BC #### [facility] [address] [place] [address] Dr. Jamal Uriarte MONO # 0.5 103/ul Normal 0.3-0.8 [facility] Comment on above: Performed By: #### C BC #### [facility] [address] [place] [address] Dr. Jamal Uriarte Monocytes/100 WBC (Bld) 9.2 % Normal 1.7-12.0 [facility] Comment on above: Performed By: #### C BC #### [facility] [address] [place] [address] Dr. Jamal Uriarte NEUT # 2.6 103/ul Normal 1.4-6.5 [facility] Comment on above: Performed By: #### C BC #### [facility] [address] [place] [address] Dr. Jamal Uriarte Neutrophils/100 WBC (Bld) 49.8 % Normal 43.0-75.0 [facility] Comment on above: Performed By: #### C BC #### [facility] [address] [place] [address] Dr. Jamal Uriarte Platelet mean volume (Bld) [Entitic vol] 9.4 fL Critically low 9.5-13.5 [facility] Comment on above: Performed By: #### C BC #### [facility] [address] [place] [address] Dr. Jamal Uriarte PLT 181 103/ul Normal 150-450 [facility] Comment on above: Performed By: #### C BC #### [facility] [address] [address] [address] Jamal Uriarte RBC 4.92 106/ul Normal 4.70-6.10 [facility] Comment on above: Performed By: #### C BC #### [facility] [address] [place] [address] Dr. Jamal Uriarte WBC 5.3 103/ul Normal 4.0-11.0 [facility] Comment on above: Performed By: #### C BC #### [facility] [address] [place] [address] Dr. Jamal Uriarte LIPID PROFILEon 09-07-2022 CHOL-HDL RATIO NORM SEE BELOW Normal [facility] Comment on above: Result Comment: 3.3 - 4.4 LOW RISK 4.4 - 7.1 AVERAGE RISK 7.1 - 11.0 MODERATE RISK >11.0 HIGH RISK Performed By: #### C MP, LIPID #### [facility] [address] [place] [address] Dr. Jamal Uriarte Cholesterol [Mass/Vol] 150 mg/dL Normal <=200 [facility] Comment on above: Performed By: #### C MP, LIPID #### [facility] [address] [place] [address] Dr. Jamal Uriarte Cholesterol in HDL [Mass/Vol] 36 mg/dL Critically low 40-60 [facility] Comment on above: Performed By: #### C MP, LIPID #### [facility] [address] [place] [address] Dr. Jamal Uriarte Cholesterol in LDL [Mass/Vol] 71.0 mg/dL Normal [facility] Comment on above: Performed By: #### C MP, LIPID #### [facility] [address] [address] [address] Jamal Uriarte Cholesterol.total/C holesterol in HDL [Mass ratio] 4.2 {ratio} Normal [facility] Comment on above: Performed By: #### C MP, LIPID #### [facility] [address] [address] [address] Jamal Uriarte HDL NORMAL > or = 60 mg/dl - LO W CARDIOVASCULAR RISK <40 mg/dl - HIGH CARDIOVASCULAR RISK Normal [facility] Comment on above: Performed By: #### C MP, LIPID #### [facility] [address] [address] [address] Jamal Uriarte LDL CALC NORMAL SEE BELOW Normal [facility] Comment on above: Result Comment: <100 mg/dl OPTIMAL 100 - 129 mg/dl NEAR OR ABOVE OPTIMAL 130 - 159 mg/dl BORDERLINE HIGH 160 - 189 mg/dl HIGH >190 mg/dl VERY HIGH Performed By: #### C MP, LIPID #### [facility] [address] [address] [address] Jamal Uriarte Triglyceride [Mass/Vol] 215 mg/dL Critically high <=150 [facility] Comment on above: Performed By: #### C MP, LIPID #### [facility] [address] [address] [address] Jamal Uriarte VLDL CALC 43.0 mg/dL Normal [facility] Comment on above: Performed By: #### C MP, LIPID #### [facility] [address] [address] [address] Jamal Uriarte PROF 14(COMP METB)on 022 Albumin [Mass/Vol] 3.7 g/dL Normal 3.4-5.[address] [facility] Comment on above: Performed By: #### C MP, LIPID #### [facility] [address] [place] [address] Dr. Jamal Uriarte Albumin/Globulin [Mass ratio] 1.0 {ratio} Normal [facility] Comment on above: Performed By: #### C MP, LIPID #### [facility] [address] [address] [address] Jamal Uriarte ALP [Catalytic activity/Vol] 74 U/L Normal 46-116 [facility] Comment on above: Performed By: #### C MP, LIPID #### [facility] [address] [place] [address] Dr. Jamal Uriarte ALT [Catalytic activity/Vol] 40 U/L Normal 16-63 [facility] Comment on above: Performed By: #### C MP, LIPID #### [facility] [address] [place] [address] Dr. Jamal Uriarte Anion gap [Moles/Vol] 10.7 mmol/L Normal [facility] Comment on above: Performed By: #### C MP, LIPID #### [facility] [address] [place] [address] Dr. Jamal Uriarte AST [Catalytic activity/Vol] 28 U/L Normal 15-37 [facility] Comment on above: Performed By: #### C MP, LIPID #### [facility] [address] [place] [address] Dr. Jamal Uriarte Bilirubin [Mass/Vol] 1.6 mg/dL Critically high 0.2-1.0 [facility] Comment on above: Performed By: #### C MP, LIPID #### [facility] [address] [place] [address] Dr. Jamal Uriarte Calcium [Mass/Vol] 8.7 mg/dL Normal 8.5-10.[address] [facility] Comment on above: Performed By: #### C MP, LIPID #### [facility] [address] [place] [address] Dr. Jamal Uriarte Chloride [Moles/Vol] 107 mmol/L Normal 98-107 [facility] Comment on above: Performed By: #### C MP, LIPID #### [facility] [address] [place] [address] Dr. Jamal Uriarte CO2 [Moles/Vol] 26.3 mmol/L Normal 21.0-32.0 [facility] Comment on above: Performed By: #### C MP, LIPID #### [facility] [address] [place] [address] Dr. Jamal Uriarte Creatinine [Mass/Vol] 1.42 mg/dL Critically high 0.70-1.30 [facility] Comment on above: Performed By: #### C MP, LIPID #### [facility] [address] [address] [address] Jamal Uriarte EGFR-AF IVORIAN 59 mL/min/1.73m2 Critically low >=60 [facility] Comment on above: Performed By: #### C MP, LIPID #### [facility] [address] [address] [address] Jamal Uriarte EGFR-NON AF IVORIAN 49 mL/min/1.73m2 Critically low >=60 [facility] Comment on above: Performed By: #### C MP, LIPID #### [facility] [address] [place] [address] Dr. Jamal Uriarte Globulin (S) [Mass/Vol] 3.7 g/dL Normal [facility] Comment on above: Performed By: #### C MP, LIPID #### [facility] [address] [place] [address] Dr. Jamal Uriarte Glucose [Mass/Vol] 114 mg/dL Critically high 74-106 [facility] Comment on above: Performed By: #### C MP, LIPID #### [facility] [address] [place] [address] Dr. Jamal Uriarte Potassium [Moles/Vol] 4.0 mmol/L Normal 3.5-5.1 [facility] Comment on above: Performed By: #### C MP, LIPID #### [facility] [address] [place] [address] Dr. Jamal Uriarte Protein [Mass/Vol] 7.4 g/dL Normal 6.4-8.2 [facility] Comment on above: Performed By: #### C MP, LIPID #### [facility] [address] [place] [address] Dr. Jamal Uriarte Sodium [Moles/Vol] 140 mmol/L Normal 136-[address] [facility] Comment on above: Performed By: #### C MP, LIPID #### [facility] [address] [place] [address] Dr. Jamal Uriarte Urea nitrogen [Mass/Vol] 19.0 mg/dL Critically high 7.0-18.0 [facility] Comment on above: Performed By: #### C MP, LIPID #### [facility] [address] [address] [address] Jamal Uriarte Urea nitrogen/Creatinine [Mass ratio] 13.4 mg/mg Normal [facility] Comment on above: Performed By: #### C MP, LIPID #### [facility] [address] [address] [address] Jamal Uriarte Provider Letteron 07-14-2021 Provider Letter July 14, 2021 July 14, 2021 [facility] ALBERTO [facility]AMB[facility] [address] [place] [address] LUIS ALBERTO CHAMBERS 1950 Dear Luis Alberto [...] appreciate your understanding. Sincerely, [facility] [address], [place] [address] Normal [facility] RAD - CT Reporton 12-25-2020 RAD - CT Report [id number] .[id number]:127 Normal [facility] RAD - MISCon 12-25-2020 RAD - MISC [id number] .00CD:127 Normal [facility] Formson 12-24-2020 Forms [id number] .[id number]:127 Normal [facility] Screenson 12-24-2020 Screens [id number] .[id number]:127 Normal [facility] Ambulatory Clinical Summaryo n 12-23-2020 Ambulatory Clinical Summary {[id number]}CD:[id number] Normal [facility] Patient Educationon 12-24-19 Patient Education Urology Kidney [...] these instructions at home: Medicines ? Take sakt-wlc-eosjwtz and prescription medicines only as told by [...] 03/22/2009 Document Revised: 02/20/2020 Document Reviewed: 02/20/2020 Fjuul Patient Education ? 2019 [employer]. Normal [facility] Urology Office/Clinic Noteon 12-23-2020 Urology Office/Clinic Note Chief Complaint [employer] kideny stones HPI Staff [employer] referred by Dr. Persaud due to Kidney [...] Dr. Campuzano. Follow-up With When Contact Information Francisco CAMPUZANO MD [address] [place] [address] [phone] Additional Instructions: 6mos. kub Patient Education Kidney Stones, Xsnp-uh-Yehk I, Nerissa Merida , personally scribed for [...] anxiety disorder High cholesterol Hypertension Kidney stone MD (myocardial infarction) Historical No qualifying data Procedure/Surgical [...] 12/23/2020 Fami (more content not included)... Normal [facility] Comment on above: Result Comment: Elec tronically Signed By: Francisco CAMPUZANO MD\.br\Date and Time Signed: 12/23/20 11:12 EST\.br\Electronically Co-Signed By: Nerissa Merida MA\.br\Date and Time Co-Signed: 12/23/20 11:10 EST RAD - MISCon 12-20-2020 RAD - MISC [id number] .00CD:127 Normal [facility] Cardiovascular Lab Reporton 07-12-2020 Cardiovascular Lab Report [facility] Patient Name: Luis Alberto Chambers [facility] Bernardo MR #: [id number] Department of Physician: Sushma Rowley M.D. Division of Service Date: 07/11/2020 Cardiology Birthdate: 1950 Adult Cardiovascular Room #: [facility] [address] [place] [id number] Cardiovascular Laboratory Report INDICATION: The patient is [...] signed informed consent. He was brought to manager cardiac cath in a fasting state. Due to his chronic kidney disease, he was hydrated prior to the procedure. Modified Trell's test was favorable on the left. Access in the left radial artery was obtained using micropuncture technique. A 6-Mexican x 11 cm Hydrophilic sheath was advanced. Verapamil was given through the sheath and heparin was administered intravenously. Bilateral selective coronary angiography was then performed using a 6-Mexican JL3.5 for engagement of the left anterior descending artery, a 6-Mexican multipurpose catheter for engagement of the circumflex vessel and a 4-Mexican 3DRC diagnostic catheter for engagement of the [...] P/Sushma Rowley M.D. Date Trans: 07/12/2020 01:44 A/jodie DN_[id number] cc: Dexter Persaud D.O. [address] [facility] [address] [facility] Encounters Encounter Date Encounter Type Care Provider Facility Start: 01-22-2025 End: 01-22-2025 ambulatory [facility] Start: 09-11-2024 End: 09-11-2024 ambulatory [facility] Start: 09-07-2022 End: 09-08-[address] DEXTER PERSAUD Facility: Start: 07-11-2020 End: 07-12-2020 Patient encounter procedure PROVIDER UNKNOWN Facility:[facility] Procedures Date Procedure Procedure Detail Performing Clinician Start: 09-07-[address] DEXTER PERSAUD Comment on above: Performed By: #### P [facility] #### [facility] [address] [place] [address] Dr. Jamal Uriarte Payers Date Payer Category Payer Medicare [id number] 1960 Unknown [id number] 1950 Unknown [id number] 1950 Unknown [id number] Progress note 01-22-2025 Note Date & Type Note Facility 01-22-2025 Note [place] [facility] Subjective Luis Alberto Chambers is a 74 y.o. year old male patient being seen for 6 month follow up. Patient states he is feel pretty good, he states has had cold off and on all winter. Patient denies chest, SOB, abnormal bleeding, or palpitations. Patient Active Problem List Diagnosis Bradycardia Closed [...] of coronary artery disease and history of MD s/p stenting of the LAD in March [...] and are negative. Objective Visit Vitals BP 121/70 (BP Location: Left arm, Patient Position: Sitting) Pulse 51 Ht 1.702 m (5' 7 ) Wt 83.9 kg (185 lb) SpO2 96% BMI 28.98 kg/m??? Smoking Status Former BSA 1.99 m??? Physical Exam Constitutional: Appearance: He is [...] Judgment: Judgment normal. Allergies Allergies Allergen Reactions Mfcbowi-Wqt-Uut Reductase Inhibitors Other Medications Current Outpatient Medications: amLODIPine (Norvasc) 2.5 mg tablet, Take 1 tablet (2.5 mg) by mouth in the morning. Take in addition to the 5 mg tablet for a total of 7.5 mg daily., Disp: 90 tablet, Rfl: 3 amLODIPine (Norvasc) 5 mg tablet, Take 1 [...] mouth in the morning., Disp: , Rfl: Recent Labs 09/07/2023 CBC unremarkable Cr 1.43, BUN 14, eGFR 48, K 4.2, Na 144, AST 21, ALT 28 Chol 104, HDL 30, LDL 42, trig 162 02/18/2021 Cr 1.53, BUN 21, eGFR 45 Lipid panel 06/25/2020: Cholesterol 107, HDL 26, trig 96, LDL 61 Imaging and other tests Echocardiogram 09/20/2024: Normal ventricular size and systolic function. LVEF is estimated at 55 to 60%. Normal right ventricular size and systolic function. Normal diastolic function. Mild mitral regurgitation. Unable to assess right-sided pressures due to lack of measurable tricuspid regurgitation. CVL 07/15/20 CORONARY ANGIOGRAPHY: 1. This is [...] the LAD has mild disease. 4. Circumflex vess (more content not included)... [facility] Progress note 09-11-2024 Note Date & Type Note Facility 09-11-2024 Note [place] [facility] Subjective Luis Alberto Chambers is [...] of coronary artery disease and history of MD s/p stenting of the LAD in March [...] Judgment: Judgment normal. Allergies Allergies Allergen Reactions Kyozktj-Ofx-Jui Reductase Inhibitors Other Medications Current Outpatient Medications: [...] Right coronary artery: (more content not included)... [facility] Summary Purpose Family History No Family History [...] and content) DATE CREATED AUTHOR 07/16/2020 [facility] DATE CREATED AUTHOR AUTHOR'S ORGANIZ ATION 07/15/2021 [facility] DATE CREATED AUTHOR AUTHOR'S ORGANIZ ATION 09/10/2022 [facility] DATE CREATED AUTHOR AUTHOR'S ORGANIZ ATION 02/24/2025 [facility] FOR RECORDS PERTAINING TO PATIENTS WHO ARE [...] BE BASED ON THE PRIMARY CLINICAL RECORDS. [employer] [facility]. provides no warranty or guarantee of the accuracy or completeness of information in this document.
[2025-03-05 11:19] LABS: Basophils Percent Auto 0.6 % (0.2-2.0); Eosinophils Absolute Auto 0.4 10^3/uL (0.0-0.7); Eosinophils Percent Auto 5.4 % (0.9-7.0); Hematocrit 42.1 % (42.0-54.0); Hemoglobin 14.5 g/dL (14.0-18.0); Immature Granulocytes Abs Auto 0.01 10^3/uL (0.00-0.03); Immature Granulocytes Pct Auto 0.2 % (0.0-0.5); Lymphocytes Absolute Auto 1.8 10^3/uL (1.2-3.8); Lymphocytes Percent Auto 28.4 % (20.5-60.0); Mean Corpuscular HGB Conc 34.4 g/dL (29.9-35.2); Mean Corpuscular Hemoglobin 30.3 pg (25.9-34.0); Mean Corpuscular Volume 87.9 fL (80.0-94.0); Mean Platelet Volume 9.6 fL (9.5-13.5); Monocytes Absolute Auto 0.5 10^3/uL (0.3-0.8); Monocytes Percent Auto 7.6 % (1.7-12.0); Neutrophils Absolute Auto 3.7 10^3/uL (1.4-6.5); Neutrophils Percent Auto 57.8 % (43.0-75.0); Platelet Count 191 10^3/uL (150-450); Red Blood Count 4.79 10^6/uL (4.70-6.10); Red Cell Distribution Width 12.5 % (11.0-15.0); White Blood Count 6.4 10^3/uL (4.0-11.0)
[2025-03-05 12:07] LABS: Alanine Aminotransferase 29 U/L (16-63); Albumin Level 3.4 g/dL (3.4-5.0); Alkaline Phosphatase 78 U/L (46-116); Anion Gap 10.6; Aspartate Amino Transferase 21 U/L (15-37); BUN Creatinine Ratio 10.3; Bilirubin Total 1.4 mg/dL (0.2-1.0); Calcium 8.6 mg/dL (8.5-10.1); Carbon Dioxide 26.6 mmol/L (21.0-32.0); Chloride 108 mmol/L (98-107); Chol HDL Ratio 3.8; Cholesterol 124 mg/dL (<=200); Estimated GFR (African America 53 (>=60 mL/min/1.73m^2); Estimated GFR (Non-African Ame 44 (>=60 mL/min/1.73m^2); Globulin 3.5 g/dL; Glucose 102 mg/dL (74-106); HDL Cholesterol 33 mg/dL (40-60); Potassium 4.2 mmol/L (3.5-5.1); Sodium 141 mmol/L (136-145); Total Protein 6.9 g/dL (6.4-8.2); Triglycerides 258 mg/dL (<=150); VLDL CHOLESTEROL 51.6 mg/dL
[2025-03-05 12:43] LABS: Estimated Average Glucose 117 mg/dL; Glycohemoglobin A1C 5.7 % (4.5-6.2)
[2025-03-05 14:01] LABS: Creatinine Urine Random 226.18 mg/dL (20.00-300.00); Microalbum Creatinine Ratio Ur 5.7 mg/g (0.0-29.9); Microalbumin Urine Random <1.3 mg/dL (<=30.0)
[2025-03-06 08:08] LABS: PSA, Free 0.45 ng/mL
== END 2025-03-05 10:43 | disposition home or self-care (01) ==
LOC: LAB 10:52
PROVIDERS: PCP Family Medicine; Visit Provider Family Medicine
DX: R73.9 Hyperglycemia, unspecified (principal); Z13.220 Encounter for screening for lipoid disorders; Z12.5 Encounter for screening for malignant neoplasm of prostate; N18.30 Chronic kidney disease, stage 3 unspecified; I12.9 Hypertensive chronic kidney disease with stage 1 through stage 4 chronic kidney disease, or unspecified chronic kidney disease
CPT/HCPCS: 36415; 80053; 80061; 82043; 82570; 83036; 84153; 84154; 85025